=== PATIENT | female | born 1995 ===

== ENCOUNTER 2025-07-21 12:54 | Emergency (ER) | payer OTHER, SELFPAY ==
--- NOTE | ~2025-07-21 | CT_ITS ---
EXAMINATION: CT CERVICAL SPINE WITHOUT CONTRAST CLINICAL INFORMATION: Status post fall. COMPARISON: None available. TECHNIQUE: Contiguous axial images through the cervical spine using 3 mm collimation with bone and soft tissue algorithm. Sagittal and coronal reformatted images acquired. DLP: 308.[address] examination was performed using dose optimization techniques as appropriate, variously including the following: *Automated exposure control *Adjustment of mA and/or kV according to patient size (this includes techniques or standardized protocols for targeted exams where dose is matched to indication/reason for exam; i.e. extremities or head) *Use of iterative reconstruction technique FINDINGS: Craniocervical junction is intact with normal alignment between the occipital condyles and the lateral masses of C1. C1 is intact. C2 is intact. C3 is intact. C4 is intact. C5 is intact. C6 is intact. C7 is intact. Right-sided cervical rib, C7. Normal alignment between the vertebral bodies and the facet joints. No prevertebral compartment hematoma. Thyroid gland is not enlarged. Tympanic cavities and mastoid cells are aerated. CT/CT cervical spine wo IV con IMPRESSION: No acute fracture or trauma-related listhesis. Right-sided cervical rib, C7. EXAMINATION: CT HEAD WITHOUT CONTRAST CLINICAL INFORMATION: fall posterior head strke L nec pain COMPARISON: None available. TECHNIQUE: Contiguous axial imaging was performed from the skull base to vertex without intravenous administration of contrast. This CT examination was performed using dose optimization techniques as appropriate, variously including the following: *Automated exposure control *Adjustment of mA and/or kV according to patient size (this includes techniques or standardized protocols for targeted exams where dose is matched to indication/reason for exam; i.e. extremities or head) *Use of iterative reconstruction technique DLP: 621.38 mGy-cm FINDINGS: No acute cortical disruption within the bony calvarium or the included skull base. No acute intracranial hemorrhage, mass effect, midline shift, hydrocephalus or herniation. Mckinney-white matter differentiation is normal. Posterior cranial fossa contents demonstrated no mass effect or hemorrhage. Normal position of the cerebellar tonsils. Sellar/suprasellar region demonstrated no gross masses. Poor pneumatization of the frontal sinus and volume loss right maxillary sinus. Tympanic cavities and mastoid cells are aerated. There is right internal jugular bulb at the level of the posterior mesotympanum. IMPRESSION: No acute fracture, bony calvarium. No acute hemorrhage or acute brain abnormality. High riding right internal jugular bulb. Fleischner guidelines were followed. Electronically signed by: Jose Armando Marinelli MD 07/21/2025 02:22 PM EDT RP
[2025-07-21 13:03] VITALS: BP 120/65; PULSE 75; RESP 18; TEMP 36.9; O2SAT 98; BMI 28.8
--- NOTE | 2025-07-21 13:04 | ED.GENADULT ---
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 Patient states she was at work when she slipped on the wet floor, causing her to fall backwards with posterior head strike. No LOC. No thinners. She was able to stand/ ambulate after the fall. Reports headache and b/l neck pain. Denies dizziness, vision changes, N/V, back pain. Patient reports appendectomy 4 mo ago. Admits to mild discomfort around surgical site following the fall. Related Data Previous Rx's ?Medication ?Instructions ?Recorded acetaminophen 325 mg tablet 650 mg (2 x 325 mg) PO Q6H PRN 07/21/25 (Tylenol) pain (scale score 4-6) #30 tabs ibuprofen 600 mg tablet 600 mg PO Q8H PRN pain (scale 07/21/25 score 4-6) #20 tabs ondansetron 4 mg disintegrating 4 mg PO Q8H PRN nausea and 07/21/25 tablet vomiting #10 tabs Allergies Allergy/AdvReac Type Severity Reaction Status Date / Time No Known Allergies Allergy Verified 07/21/25 13:07 Review of Systems Review of Systems: Yes all other systems are reviewed and are negative PMFSH Past Medical History Attestation statement: The following information was validated with the patient. Source: old records reviewed and nursing notes reviewed Physical Exam ED Vital Signs: BMI result Body Mass Index 28.8 vital signs stable General: Well appearing, in no acute distress. Skin: Warm, dry, intact. No rashes or lesions. Head: Normocephalic, atraumatic. no raccoon eyes, battles sign. no palpable hematoma or skull fracture. EENT: Hearing is intact b/l. Conjunctiva clear. Sclera is anicteric. PERRLA. EOM intact. Moist mucous membranes.? Neck: FROM Cardiac: Chest wall symmetric. RRR Lungs: Normal respiratory effort without accessory muscle use. CTA bilaterally Abdomen: well healing surgical scars noted to abdomen, no overlying skin changes, no dehiscence, no discharge, no palpable fluctuance/induration. soft, non-tender, non-distended. No rebound tenderness or guarding. Positive BS x4. Back: No midline spinous or paraspinal tenderness. No step off deformity. Ext: Upper and lower extremities atraumatic, without tenderness, deformity, swelling or erythema Neuro: AOx3. Normal speech. Strength 5/5 intact throughout. No saddle anesthesia. Sensation intact to light touch. NV intact distally. Ambulating with steady gait. Course Course Course Narrative: This is a Rapid Medical Examination (RME) performed by Margot Epperson PA-C in triage. Full HPI, ROS, assessment and treatment plan per primary provider in the Main ED. Hx: 29 yo F here s/p slip and fall backward w/ posterior head strike at work around 1140 this morning. reports nausea, left sided neck pain, headache. no thinners. unclear of LOC - reports it was blurry and dark however was assisted up to standing and felt better. admits to appendectomy 4 mo ago - having pain along surgical site since fall. Plan: imaging Reevaluation(s) Reevaluation #1: labs/imaging unremarkable. exam benign - no need for imaging of abdomen. Patient has remained stable throughout ED visit today. Discussed worrisome signs and symptoms and when to return to the ED. All questions answered at this time. Patient is agreeable with disposition and stable for discharge. Medications Administered Discontinued Medications Generic Name Dose Route Start Last Admin Trade Name Freq PRN Reason Stop Dose Admin Acetaminophen 650 mg 07/21/25 14:44 07/21/25 14:48 Acetaminophen 325 Mg Tablet PO 07/21/25 14:45 650 mg ONCE ONE Administration Ketorolac Tromethamine 30 mg 07/21/25 17:18 07/21/25 17:26 Ketorolac Tromethamine 30 Mg/Ml Vial IM 07/21/25 17:19 30 mg ONCE ONE Administration Medical Decision Making Medical Decision Making [facility] Narrative: 29 year old female presents to the ED today for evaluation s/p mechanical fall occurring around 1140 this morning. vitals are stable. her exam is benign. Differential diagnosis includes concussion, closed head injury, ICH, fracture Plan for imaging, labs and re-evaluation. Differential Diagnosis Differential Diagnoses: The differential diagnosis associated with the presentation includes as above. Admission/Observation not indicated. Lab Data [facility] Lab Attestation statement: I reviewed the patient's lab results. as above. 07/21/25 13:12 07/21/25 13:12 Labs: Lab Results 07/21/25 Range/Units 13:12 WBC 7.6 (4.8-10.8) X10*3/uL RBC 4.56 (4.20-5.50) X10*6/uL Hgb 13.0 (12.0-16.0) g/dl Hct 38.6 (37.0-47.0) % MCV 84.6 (80.0-98.0) fL MCH 28.5 (27.0-33.0) pg MCHC 33.7 (31.0-35.0) g/dl RDW 13.3 (11.0-16.0) % Plt Count 283 (160-400) X10*3/uL MPV 9.9 (9.4-12.3) fL Immature Gran % (Auto) 0.3 (0.0-0.4) % Neut % (Auto) 56.5 (45-73) % Lymph % (Auto) 34.5 (20-40) % [place] % (Auto) 6.9 (2-11) % Eos % (Auto) 1.3 (0-4) % Baso % (Auto) 0.5 (0-2) % Lymph # (Auto) 2.6 (1.2-4.9) X10*3/uL [place] # (Auto) 0.5 (0.1-1.2) X10*3/uL Eos # (Auto) 0.1 (0.0-0.4) X10*3/uL Baso # (Auto) 0.0 (0.0-0.2) X10*3/uL Abs Immat Gran (auto) 0.02 (0.00-0.03) X10*3/uL Absolute Neuts (auto) 4.3 (2.0-8.3) x10*3/uL Absolute Nucleated RBC 0.000 (0.0-0.012) X10*3/uL Nucleated RBC % (auto) 0.0 (0.0-0.2) /100WBC Sodium 139 (135-145) mmol/L Potassium 3.9 (3.3-5.1) mmol/L Chloride 106 (96-108) mmol/L Carbon Dioxide 26 (22-29) mmol/L Anion Gap 11 L (12-20) BUN 14 (9-16) mg/dL Creatinine 0.62 (0.5-1.4) mg/dL Estim Creat Clear Calc 101.8 Estimated GFR > 60 Random Glucose 91 (60-115) mg/dL Calcium 9.4 (8.4-10.2) mg/dL Total Bilirubin 0.7 (0.0-1.0) mg/dL AST 22 (5-31) U/L ALT 25 (0-31) U/L Alkaline Phosphatase 104 (39-117) U/L Total Protein 7.4 (6.5-8.0) g/dL Albumin 4.6 (3.5-5.0) g/dL Beta HCG, Quant < 2 mIU/mL Independent Interpretation I performed an independent interpretation of an: CT Scan Interpretation: ct head/brain without bleed or fracture ct cervical spine without fracture Radiology Impression Discussion of test interpretation with radiology: I have reviewed the radiologist's reading. Radiologist Impression: Procedure(s): CT head/brain wo IV con Accession Number(s): [id number] cc: Physician,Unknown ; Jacqueline Epperson~ Report Number: [id number]: Total DLP = 936.48 mGy-cm Reason for Exam: fall posterior head strike EXAMINATION: CT CERVICAL SPINE WITHOUT CONTRAST CLINICAL INFORMATION: Status post fall. COMPARISON: None available. TECHNIQUE: Contiguous axial images through the cervical spine using 3 mm collimation with bone and soft tissue algorithm. Sagittal and coronal reformatted images acquired. DLP: 308.[address] examination was performed using dose optimization techniques as appropriate, variously including the following: *Automated exposure control *Adjustment of mA and/or kV according to patient size (this includes techniques or standardized protocols for targeted exams where dose is matched to indication/reason for exam; i.e. extremities or head) *Use of iterative reconstruction technique FINDINGS: Craniocervical junction is intact with normal alignment between the occipital condyles and the lateral masses of C1. C1 is intact. C2 is intact. C3 is intact. C4 is intact. C5 is intact. C6 is intact. C7 is intact. Right-sided cervical rib, C7. Normal alignment between the vertebral bodies and the facet joints. No prevertebral compartment hematoma. Thyroid gland is not enlarged. Tympanic cavities and mastoid cells are aerated. CT/CT head/brain wo IV con IMPRESSION: No acute fracture or trauma-related listhesis. Right-sided cervical rib, C7. EXAMINATION: CT HEAD WITHOUT CONTRAST CLINICAL INFORMATION: fall posterior head strke L nec pain COMPARISON: None available. TECHNIQUE: Contiguous axial imaging was performed from the skull base to vertex without intravenous administration of contrast. This CT examination was performed using dose optimization techniques as appropriate, variously including the following: *Automated exposure control *Adjustment of mA and/or kV according to patient size (this includes techniques or standardized protocols for targeted exams where dose is matched to indication/reason for exam; i.e. extremities or head) *Use of iterative reconstruction technique DLP: 621.38 mGy-cm FINDINGS: No acute cortical disruption within the bony calvarium or the included skull base. No acute intracranial hemorrhage, mass effect, midline shift, hydrocephalus or herniation. Mckinney-white matter differentiation is normal. Posterior cranial fossa contents demonstrated no mass effect or hemorrhage. Normal position of the cerebellar tonsils. Sellar/suprasellar region demonstrated no gross masses. Poor pneumatization of the frontal sinus and volume loss right maxillary sinus. Tympanic cavities and mastoid cells are aerated. There is right internal jugular bulb at the level of the posterior mesotympanum. IMPRESSION: No acute fracture, bony calvarium. No acute hemorrhage or acute brain abnormality. High riding right internal jugular bulb. Fleischner guidelines were followed. Electronically signed by: Jose Armando Marinelli MD 07/21/2025 02:22 PM EDT Prescription Management I considered prescription management with: Pain Medication Social Determinants Patient?s care significantly limited by Social Determinants of Health including: Other Social Determinant of Health Critical Care Time Critical Care Time Critical Care Time: No Discharge Plan Discharge Clinical Impression: Closed head injury, Concussion Patient Disposition: Home, Self-Care Instructions: Concussion (ED), Head Injury (ED) Additional Instructions: You were evaluated in the ED today following a head injury. The CT scan of your head does not demonstrate intracranial bleed or skull fracture. You have a concussion. See home care instructions regarding concussion protocol. Treatment for this is brain rest. Please limit screen time (i.e phone, tv, etc.) Make sure you are staying hydrated. Lay down to relax in a dark quiet room. Avoid sports until cleared by your primary doctor. Galina has been sent to your pharmacy for you to take as needed for nausea. I recommend you take 600mg ibuprofen every 6 hours or tylenol 650mg every 6 hours as needed for pain. If needed, you can alternate these medications so that you take one medication every 3 hours. For example, at noon take ibuprofen, then at 3pm take tylenol, then at 6pm take ibuprofen Follow up with your primary doctor as needed. As discussed, return to the ED with any new or worsening symptoms such as intractable headache, vomiting, lethargy, worsening confusion, etc. In the case of an emergency call 911. Prescriptions: New acetaminophen [Tylenol] 325 mg tablet 650 mg PO Q6H PRN (Reason: pain (scale score 4-6)) Qty: 30 0RF ibuprofen 600 mg tablet 600 mg PO Q8H PRN (Reason: pain (scale score 4-6)) Qty: 20 0RF ondansetron 4 mg tablet,disintegrating 4 mg PO Q8H PRN (Reason: nausea and vomiting) Qty: 10 0RF Referrals: [facility] [Outside] Physician,Unknown J [Primary Care Provider, Medical] Stand Alone Forms: Work/School Release Interventions: ED Discharge Assessment Last Done: 07/21/25 17:38 Discharge Date/Time: 07/21/25 17:38 Print Language: Slovenian
[2025-07-21 13:16] LABS: MANUAL DIFF FLAG NO
[2025-07-21 13:21] LABS: Hematocrit 38.6 % (37.0-47.0); Hemoglobin 13.0 g/dl (12.0-16.0); Imm Gran Abs Auto 0.02 X10*3/uL (0.00-0.03); Imm Gran Pct Auto 0.3 % (0.0-0.4); Lymphocytes Absolute Auto 2.6 X10*3/uL (1.2-4.9); Mean Corpuscular HGB Conc 33.7 g/dl (31.0-35.0); Mean Corpuscular Hemoglobin 28.5 pg (27.0-33.0); Mean Corpuscular Volume 84.6 fL (80.0-98.0); NRBC Abs Auto 0.000 X10*3/uL (0.0-0.012); NRBC Pct Auto 0.0 /100WBC (0.0-0.2); Platelet Count 283 X10*3/uL (160-400); Red Blood Count 4.56 X10*6/uL (4.20-5.50); White Blood Count 7.6 X10*3/uL (4.8-10.8)
[2025-07-21 13:38] LABS: Alanine Aminotransferase 25 U/L (0-31); Albumin Level 4.6 g/dL (3.5-5.0); Alkaline Phosphatase 104 U/L (39-117); Anion Gap 11 (12-20); Aspartate Amino Transferase 22 U/L (5-31); Blood Urea Nitrogen 14 mg/dL (9-16); Calcium 9.4 mg/dL (8.4-10.2); Carbon Dioxide 26 mmol/L (22-29); Chloride 106 mmol/L (96-108); Creatinine Clr Calc Pharmacy 101.8; Estimated Glomerular Filt Rate > 60; Potassium 3.9 mmol/L (3.3-5.1); Sodium 139 mmol/L (135-145); Total Protein 7.4 g/dL (6.5-8.0)
[2025-07-21 17:38] VITALS: BP 120/65; PULSE 75; RESP 18; TEMP 36.9; O2SAT 98
== END 2025-07-21 17:38 | disposition home or self-care (01) ==
PROVIDERS: Physician Assistant Medical; Emergency Provider Emergency Medicine
DX: S06.0X0A Concussion without loss of consciousness, initial encounter (principal); R51.9 Headache, unspecified; M54.2 Cervicalgia; R10.22 Pelvic and perineal pain left side; W01.10XA Fall on same level from slipping, tripping and stumbling with subsequent striking against unspecified object, initial encounter; Y93.9 Activity, unspecified; Y92.9 Unspecified place or not applicable; Y99.0 Civilian activity done for income or pay; Z79.899 Other long term (current) drug therapy
CPT/HCPCS: 36415; 70450; 72125; 80053; 84702; 85025; 96372; 99283; 99284; J1885

== ENCOUNTER → 2025-07-21 13:07 | Outpatient (BNV) | payer SELFPAY | PROVIDERS: Visit Provider Radiology Diagnostic Radiology | DX: M54.2 Cervicalgia (principal); S09.90XA Unspecified injury of head, initial encounter; W19.XXXA Unspecified fall, initial encounter | CPT/HCPCS: 70450; 72125 ==

== ENCOUNTER → 2025-07-22 13:42 | Outpatient (BNVA) | payer OTHER, SELFPAY | PROVIDERS: Visit Provider Physician Assistant | DX: Z09 Encounter for follow-up examination after completed treatment for conditions other than malignant neoplasm (principal); S00.93XA Contusion of unspecified part of head, initial encounter; S16.1XXA Strain of muscle, fascia and tendon at neck level, initial encounter; X58.XXXA Exposure to other specified factors, initial encounter; R51.9 Headache, unspecified; R42 Dizziness and giddiness | CPT/HCPCS: 99204 ==

== ENCOUNTER → 2025-07-26 09:51 | Outpatient (BNVA) | payer OTHER, SELFPAY | PROVIDERS: Visit Provider Physician Assistant Medical | DX: S00.93XA Contusion of unspecified part of head, initial encounter (principal); M54.2 Cervicalgia; S46.812A Strain of other muscles, fascia and tendons at shoulder and upper arm level, left arm, initial encounter; S39.011A Strain of muscle, fascia and tendon of abdomen, initial encounter; W01.0XXA Fall on same level from slipping, tripping and stumbling without subsequent striking against object, initial encounter | CPT/HCPCS: 99213 ==

== ENCOUNTER → 2025-07-29 09:47 | Outpatient (BNVA) | payer OTHER, SELFPAY | PROVIDERS: Visit Provider Physician Assistant | DX: S00.93XA Contusion of unspecified part of head, initial encounter (principal); W01.0XXA Fall on same level from slipping, tripping and stumbling without subsequent striking against object, initial encounter; M54.2 Cervicalgia; M51.9 Unspecified thoracic, thoracolumbar and lumbosacral intervertebral disc disorder | CPT/HCPCS: 99213 ==

== ENCOUNTER 2025-08-09 12:51 | Outpatient (RCR) | payer OTHER, SELFPAY ==
--- NOTE | 2025-08-12 08:35 | MHC.PT.EP ---
[facility] [place] [facility] [place] [facility] [place] [facility] [address] [place] [address] [phone] F: [phone] F: [phone] F: [phone] F: [phone] Physical Therapy Plan of Care Date of Evaluation: 08/09/25 Date of Surgery: Diagnosis: Present with initial script of Fall, cervicalgia, trapezius strain/spasm, date of onset 07/21/25 1-3x/week x 3-12 weeks signed by Barb Hackett PA-C 07/26/25. On Saturday08/06/25, desk manager spoke with headlight adjuster at , stated only cover back pain as this is what was filed with them. 08/09/25 at 8:30am Liz[place] at desk manager spoke with Barb Hackett at [facility] who will update the order to upper back pain . Received updated order prior to appt this date: Upper back pain, PT eval and treat, mechanical falls cervical strain, trapezius strain (these are part of the back) 1-3x/week x 3-12 weeks signeb by ALANA Hackett 08/09/25 Assessment: Pt is a 29 y/o R hand dominant Estonian speaking female, referred to PT for treatment of: upper back pain following mechanical fall slip and fall on wet floors on 07/21/25 while working at the [employer]. Pt was referred to PT on 07/26/25 but was unable to be seen until today due to specific request for an afternoon appt. Pt exhibits decreased cervical/upper back ROM, impaired sleeping tolerance, and pain rated 7/10 in upper back/cervical region. She reports pain radiating down from her upper back into her L UE. She has poor tolerance for sleeping in L SL and has decreased tolerance for lifting/reaching. She will benefit from attending PT to obtain a stretching program, manual therapy, strength training and body mechanics education. Pt was encouraged to attend PT at a frequency of 2x/week however due to pt's rigid time requests of appts 2pm or later she is only able to attend PT once a week at this time (no appts avail at her desired time of request due to office is fully booked). She was educated re: log roll post initial evaluation, encouraged to move and change position at work often, shown scapular retraction and cervical rotation for HEP. She will benefit from use of [facility] services for future session as she reports use of bus to attend therapy appts. Use of water valve mechanic was required (#[id number] this date). Frequency and Duration: The patient will be seen 1-2x/week x 4 weeks Short Term Goals: 1. Demonstrate increased cervical rotation by 25%. 2. Pt will demonstrate initiation of self care program. 3. Pt will demonstrate increased cervical rotation to 70 degrees L>R and R>L. 4. Pt will demonstrate improvement in sleep quality by 25%. 5. Pt will demonstrate good postural awareness during bed mobility/ADLS post session. Medical Insurance Coder Goals: 1. Pt will demonstrate improvement in NDI index score. 2. Pt will demonstrate improved sleep quality related to upper back pain. 3. Pt will demonstrate good body mechanics 3:3 trials. 4. Pt will demonstrate centralization of L UE movement. 5. I HEP with good self care management skills. Treatment Plan: Modalities to reduce pain, spasms and effusion. Manual therapy to restore motion and function. Therapeutic exercise to improve strength and flexibility. Neuromuscular re-education for posture and balance. Therapeutic activities to return to functional activities of daily living. Electronically signed by: Trinity Villeda, PT, DPT Please sign and return to therapist. Thank you for your referral.
== END 2025-09-21 09:59 | disposition home or self-care (01) ==
LOC: HO.PTS 12:51
PROVIDERS: Visit Provider Physician Assistant Medical
DX: M54.6 Pain in thoracic spine (principal); S16.1XXD Strain of muscle, fascia and tendon at neck level, subsequent encounter; S46.819D Strain of other muscles, fascia and tendons at shoulder and upper arm level, unspecified arm, subsequent encounter; W19.XXXD Unspecified fall, subsequent encounter
CPT/HCPCS: 97162